=== PATIENT | male | born 1940 | race Caucasian/White ===

== ENCOUNTER → 2023-09-27 13:58 | Outpatient (REF) | payer MEDICARE, OTHER, SELFPAY ==
[2023-09-27 14:50] LABS: % Basophils 0.6 % (0-2); % Immature Granulocytes 0.3 % (0-0.5); % Lymphocytes 26.4 % (20.5-51.1); % Monocytes 7.6 % (1.7-9.3); % Neutrophils 62.1 % (42.2-75.2); ALT (SGPT) 27 U/L (0-50); AST (SGOT) 29 U/L (17-59); Absolute Eosinophils 0.2 10^3/uL (0-0.7); Absolute Lymphocytes 1.8 10^3/uL (1.2-3.4); Absolute Monocytes 0.5 10^3/uL (0.1-0.6); Absolute Neutrophils 4.1 10^3/uL (1.4-6.5); Albumin 4.4 g/dl (3.5-5.0); Alkaline Phosphatase 63 U/L (38-126); Blood Urea Nitrogen 18 mg/dl (9-20); Calcium 9.1 mg/dl (8.4-10.2); Carbon Dioxide 24 mmol/L (22-30); Chloride 109 mmol/L (98-107); Direct Bilirubin 0.2 mg/dl (0.0-0.4); Glucose 91 mg/dl (70-99); HDL Cholesterol 44 mg/dl; Hematocrit 46.1 % (39.0-52.0); Hemoglobin 15.3 g/dL (13.0-18.0); LDL Cholesterol, Calculated 63 mg/dl; Mean Corp Hgb Conc. 33.2 g/dL (33.0-37.0); Mean Corpuscular Volume 87.3 fL (80.0-94.0); Mean Platelet Volume 10.1 fL (7.4-10.4); Nucleated Red Blood Cells % 0 % (-); Platelet Count 193 10^3/uL (130-400); Potassium 4.5 mmol/L (3.5-5.1); Red Blood Cell Count 5.28 10^6/uL (4.70-6.10); Red Cell Dist. Width 14.9 % (11.5-14.5); Sodium 140 mmol/L (135-145); Total Cholesterol 130 mg/dl (50-199); Total Protein 6.8 g/dl (6.3-8.2); Triglyceride 115 mg/dl (10-149); Very Low Density Lipoprotein 23 mg/dl (0-30); White Blood Cell Count 6.7 10^3/uL (4.8-10.8); eGFR > 60.00
[2023-09-27 15:05] LABS: Vitamin D, 25-OH*** 34.5 ng/mL (30-80)
[2023-09-27 15:06] LABS: Urine Albumin Negative (Neg - Trace); Urine Bilirubin Negative (Negative); Urine Character Clear (Clear); Urine Color Yellow; Urine Glucose Negative (Negative); Urine Ketone Negative (Negative); Urine Leukocyte Negative (Negative); Urine Nitrite Negative (Negative); Urine Occult Blood Negative (Negative); Urine Specific Gravity 1.015 (<1.030); Urine Urobilinogen Negative (Neg - 1+)
== END ==
LOC: OLABPV 13:58
PROVIDERS: ATTENDING PHYSICIAN Internal Medicine Cardiovascular Disease; FAMILY PHYSICIAN Internal Medicine Geriatric Medicine
DX: I48.0 Paroxysmal atrial fibrillation (principal); I25.10 Atherosclerotic heart disease of native coronary artery without angina pectoris; E78.2 Mixed hyperlipidemia; R00.1 Bradycardia, unspecified; I45.2 Bifascicular block; Z79.899 Other long term (current) drug therapy; R73.01 Impaired fasting glucose; I10 Essential (primary) hypertension; I77.9 Disorder of arteries and arterioles, unspecified; Z79.01 Long term (current) use of anticoagulants; Z87.898 Personal history of other specified conditions; I35.8 Other nonrheumatic aortic valve disorders
CPT/HCPCS: 36415; 80053; 80061; 81003; 82248; 82306; 85025

== ENCOUNTER → 2023-11-16 07:55 | Outpatient (REF) | payer MEDICARE, OTHER, SELFPAY | LOC: RCS 07:55 | PROVIDERS: ATTENDING PHYSICIAN Internal Medicine Cardiovascular Disease; FAMILY PHYSICIAN Internal Medicine Geriatric Medicine | DX: I48.0 Paroxysmal atrial fibrillation (principal); I25.10 Atherosclerotic heart disease of native coronary artery without angina pectoris; I34.0 Nonrheumatic mitral (valve) insufficiency | CPT/HCPCS: 93306 ==

== ENCOUNTER 2024-03-19 10:32 | Inpatient (IN) | payer MEDICARE, OTHER, SELFPAY ==
[2024-03-17] VITALS (14 sets, daily range): BP systolic 123–158; BP diastolic 76–110; BMI 30.7; BMI 30.4
--- NOTE | 2024-03-17 08:15 | ED.CVA ---
History of Present Illness
General
Chief Complaint: CVA/TIA Symptoms
Source: patient and ambulance crew
Time Seen by Provider: 03/17/24 08:14
Onset of Stroke Symptoms
Onset of symptoms known: No
Time pt last seen normal is known: Yes
Date last time pt seen normal: 03/17/24
Time last time pt seen normal: 02:00
History of Present Illness
History of Present Illness:
84-year-old male presents to the emergency room complaining of left-sided weakness. Patient awoke from sleep at 7 AM with left-sided weakness. He attempted to walk to the bathroom but fell. He feels like his speech is slurred. Patient went to
bed at 11 PM feeling fine. He then awoke at 2 AM to use the bathroom and felt fine. The next time he awoke was at 7 AM. Patient denies any history of strokes. He denies headache.
Past History
Past History
ED Past Medical History: Hypercholesterolemia
ED Past Surgical History: None
Social History
Tobacco: Non-smoker
Phy Exam
Physical Exam
Physical Exam:
General: Awake, Alert, Oriented X3. No acute distress.
Vitals: unremarkable
Head: Atraumatic
Eyes: Pupils equal, EOMI
Throat: Airway intact, no exudates
Neck: Trachea midline
Lungs: Clear and equal b/l
Heart: Regular rate, no murmurs
Abd: Soft, Nontender, No pulsatile mass
Neuro: Left facial droop, left upper extremity drift, left leg has no drift. Sensation is intact throughout. Patient does not appear to have any visual field deficits.
Skin: Warm, dry, no rash
Extremities: pulses equal b/l, no edema
Scores
NIH Stroke Score
Level of Consciousness: 0 - Alert
LOC Questions: 0-Answers both correctly
LOC Commands: 0-Performs both correctly
Best Horizontal Gaze: 0-Normal
Visual Mccallum: 0=Normal, no visual loss
Facial Palsy: 1=Minor paralysis
Motor - Right Arm: 0=No drift 10 seconds
Motor - Left Arm: 1=Drift < 10 seconds
Motor - Right Le-No drift 5 seconds
Motor - Left Le-No drift 5 seconds
Limb Ataxia: 0-Absent
Sensation: 0-Normal
Best Language: 0-No aphasia
Dysarthria: 1-Mild slurring
Extinction and Inattention: 0-No abnormality
Total Score:: 3
Course
Orders/Labs/Results
Orders:
Orders
03/17/24 08:14
Electrocardiogram (*1) Stat
Reason for Study: Other
Other Reason for Exam: neuro symptoms
CT Head W/o Cont STROKE ALERT Urgent
Comment:
Reason For Exam: left sided weakness
CT Head/Neck Ang STROKE ALERT Urgent
Comment:
Reason For Exam: left sided weakness
Cardiac Monitoring- Treatment ONCE
EKG- Treatment ONCE
03/17/24 09:03
Type+Screen Urgent
Basic Metabolic Panel Urgent
Complete Blood Count/With Diff Urgent
03/17/24 09:05
Aspirin Chewable [Low Strength Aspirin] 324 mg PO NOW STA
03/17/24 09:52
ABO2 Urgent
BBK Wristband Number:
Abnormal Lab Results
03/17/24 03/17/24
08:18 09:03
MCHC 32.7 L g/dL
(33.0-37.0)
Absolute Lymphs (auto) 1.1 L 10^3/uL
(1.2-3.4)
Lymphocytes % 17.6 L %
(20.5-51.1)
Glucose 105 H mg/dl
(70-99)
POC Glucose 112 H mg/dl
(70-99)
03/17/24 09:03
03/17/24 09:03
Vital Signs
Initial and Last Documented VS:
Initial Vital Signs
Temp Pulse Resp BP Pulse Ox
97.8 F 81 16 158/100 95
03/17/24 08:13 03/17/24 08:13 03/17/24 08:13 03/17/24 08:13 03/17/24 08:13
Last Documented Vital Signs
Temp Pulse Resp BP Pulse Ox
97.8 F 77 21 138/101 94
03/17/24 08:13 03/17/24 12:35 03/17/24 12:35 03/17/24 12:35 03/17/24 12:35
MDM/Problems Addressed
Differential Diagnosis Includes:
Ischemic stroke, hemorrhagic stroke, seizure, vertigo
MDM/Problems Addressed:
Patient presents as a prehospital stroke alert with left-sided weakness. Symptoms are evidently improving from when he first noticed them. CT head and CTA does not show any acute abnormalities. During his stay in the emergency room the patient's
symptoms almost completely resolved. Patient will require hospitalization for further workup. Patient is anticoagulated with Eliquis. We will give aspirin here. Neurology consultation requested.
Chronic conditions affecting care: HTN, Arrhythmia (Atrial fibrillation) and Other (High cholesterol)
*Pulse Oximetry
Patient hypoxic: no
*EKG
Interpreted by ED Provider?: Yes
Interpretation: abnormal
Heart Rate: 66
Rate: normal
Rhythm: a-fib
Brigantine: normal axis
Interval: normal interval
QRS Pattern: right bundle branch block
Ischemia: non-specific ST changes
*Marketing Programs Specialist Interpretation
Rate: normal
Interpretation: abnormal
Heart Rate: 66
Rhythm: a-fib
*Critical Care Note
Total Time (30-74mins, 75-104mins- exclusive of procedures): Not Applicable
ED Attending Note
-
Portions of this chart may have been created with voice recognition software.� Occasional wrong word or��sound alike� substitutions may have occurred due to the inherent limitations of voice recognition software.
Discharge Plan
Departure
Patient Disposition: Admit
Date of Disposition: 03/17/24
Time of Disposition: 09:16
Presentation/result/management discussed w/ accepting MD/DO: Hospitalist
Condition: Fair
Discharge Problem:
Acute CVA (cerebrovascular accident)
Prescriptions:
No Action
PreserVision AREDS 1 CAP capsule
1 cap PO BID
acetaminophen [Tylenol Extra Strength] 500 MG tablet
1,000 mg PO Q6HPRN PRN (Reason: mild pain/ fever)
atorvastatin 40 MG tablet
40 mg PO QPM Qty: 90 10RF
Patient Comments:
03/17/2024: [facility] filled Rosuvastation 20mg on 01/18/24, Pt and Spouse state pt is on Atorvastatin.
nitroglycerin 0.4 MG tablet, sublingual
0.4 mg sublingual [id number] PRN (Reason: chest pain) Qty: 25 10RF
Patient Comments:
has never taken it
metoprolol succinate 12.5 MG tablet extended release 24 hr
12.5 mg PO DAILY Qty: 90 10RF
Eliquis 5 MG tablet
5 mg PO BID
Systane Ultra (PF) 0.4-0.3 % Drops
1 drp BOTH EYES DAILY
Rx Instructions:
both eyes
Referrals:
Timothy Zavala MD [Family Provider] -
Interventions
Interventions:
*Risk Screen - Suicide Last Done: 03/17/24 08:13
*General Assessment Last Done: 03/17/24 08:40
*Neglect/Abuse Screening Last Done: 03/17/24 08:13
ED- Fall Risk Assessment Last Done: 03/17/24 08:15
*ED COVID-19 Vaccine History Last Done: 03/17/24 08:13
ED- Pulmonary Assessment Last Done: 03/17/24 08:54
ED- Neurological Assessment Last Done: 03/17/24 08:53
ED- Cardiac Assessment Last Done: 03/17/24 08:54
ED Swallowing Screen Last Done: 03/17/24 09:20
Discharge Date and Time
Print Language: AMERICAN
[2024-03-17 08:20] LABS: Glucose - Point of Care 112 mg/dl (70-99)
[2024-03-17 09:16] LABS: % Basophils 0.5 % (0-2); % Eosinophils 3.4 % (0-6); % Immature Granulocytes 0.5 % (0-0.5); % Lymphocytes 17.6 % (20.5-51.1); Absolute Eosinophils 0.2 10^3/uL (0-0.7); Absolute Lymphocytes 1.1 10^3/uL (1.2-3.4); Absolute Monocytes 0.4 10^3/uL (0.1-0.6); Absolute Neutrophils 4.2 10^3/uL (1.4-6.5); Hematocrit 49.5 % (39.0-52.0); Hemoglobin 16.2 g/dL (13.0-18.0); Mean Corp Hgb Conc. 32.7 g/dL (33.0-37.0); Mean Corpuscular Hgb 28.9 pg (27.0-31.0); Mean Corpuscular Volume 88.2 fL (80.0-94.0); Mean Platelet Volume 9.9 fL (7.4-10.4); Nucleated Red Blood Cells % 0 % (-); Platelet Count 182 10^3/uL (130-400); Red Blood Cell Count 5.61 10^6/uL (4.70-6.10); Red Cell Dist. Width 14.4 % (11.5-14.5)
--- NOTE | 2024-03-17 09:29 | HPS.HSE ---
Family Physician
-
Family Physician: Timothy Zavala
Chief Complaint
-
Left Sided weakness
History of Present Illness
84 male hypertension hyperlipidemia A-fib on Eliquis presents with left-sided weakness on waking morning 7 AM proximally. Last known normal at 2 AM when patient got up from bed to go to the bathroom. Daughter over phone also noted slurred speech.
Overall symptoms improved/resolved in transit with EMS services. Denies fevers chills nausea vomiting diarrhea headache coughing sneezing shortness of breath. Hypertensive but otherwise vital signs stable on room air. Labs unremarkable. CT and
CTA head and neck negative for acute abnormalities. Received aspirin loading dose in ED.
Medical History
Past Medical History
Past Medical History: Reports Other (As above)
Past Surgical History: Reports Other (As above)
Social History
Tobacco: Former Smoker
Drug: None
Personal:
Living: With Family
Employment: Retired
Family History
Family History: Other (Patient's mother reportedly had stroke at 87)
Allergies / Home Medications
Allergies reflects when Allergies were last updated in YouTube.
Home Medications with original date entered in YouTube
Allergy/Medication List:
Allergies
Allergy/AdvReac Type Severity Reaction Status Date / Time
No Known Allergies Allergy Verified 03/17/24 08:50
Home Medications
acetaminophen 500 mg tablet (Tylenol Extra Strength) 1,000 mg PO Q6HPRN PRN mild pain/ fever 04/24/19
vitamins A,C,J-vbou-ufouve 4,296 mcg-226 mg-90 mg capsule (PreserVision AREDS) 1 cap PO BID 04/24/19
atorvastatin 40 mg tablet 40 mg PO QPM #90 tabs 04/27/19
metoprolol succinate 25 mg tablet,extended release 24 hr 12.5 mg (1/2 x 25 mg) PO DAILY ##90 04/27/19
nitroglycerin 0.4 mg sublingual tablet 0.4 mg sublingual [id number] PRN chest pain #25 tabs 04/27/19
apixaban 5 mg tablet (Eliquis) 5 mg PO BID 08/03/21
peg 400 0.4 %-propylene glycol (PF) 0.3 % eye drops (Systane Ultra (PF)) 1 drp BOTH EYES DAILY 03/17/24
Review of Systems
-
A 12 point ROS was completed and negative except as noted: Yes
Constitutional: Reports Other (As below)
Physical Exam
Vital Signs
Vital Signs
Temp Pulse Resp BP Pulse Ox
97.8 F 78 21 152/97 94
03/17/24 08:13 03/17/24 08:57 03/17/24 08:57 03/17/24 08:45 03/17/24 08:54
Physical Exam
General: Other (As below)
Laboratory Results
-
03/17/24 09:03
Impression/Plan
-
ROS
General: Denies fever chills night sweats unexpected weight loss
Neuro: Reports transient slurred speech left sided weakness resolved at this time Denies seizure shaking loss of consciousness dizziness vertigo
Psych: denies depression hallucinations confusion manic episodes
Endocrine: Denies polyuria polydipsia polyphagia heat/cold intolerance
HEENT: Denies new blindness visual disturbances epistaxis reports baseline blurry vision d/t macular degeneration
Pulmonary: denies coughing hemoptysis sneezing sob dyspnea on exertion
Cardiovascular: denies chest pain palpitations leg swelling
Hematology: denies signs symptoms of anemia easy bruising/bleeding
Gastrointestinal: denies nausea vomiting diarrhea constipation hematemesis hematochezia melena
Genito-Urinary: denies retention incontinence dysuria
Musculoskeletal: denies joint pain weakness
Dermatology: denies rash laceration bruising
Physical Exam
General: No pallor, cyanosis, or jaundice. Obese
HEENT: Throat clear. PERRLA Normocephalic atraumatic
NECK: Supple. No JVD Carotid Bruits
RESPIRATORY: Lungs clear to auscultation. No crackles wheezes stridor
CVS: S1, S2 normal. RRR. No murmur, rub or gallop.
ABDOMEN: Soft, non-tender. No distension. BS+/normal.
EXTREMITIES: No peripheral cyanosis or edema.
EXECUTIVE ASSISTANT TO GENERAL COUNSEL: AOx3. No focal deficits.
IMPRESSION:
84 male obese hypertension hyperlipidemia A-fib on Eliquis hx CAD/[place] presents with left-sided weakness on waking morning 7 AM proximally. Last known normal at 2 AM when patient got up from bed to go to the bathroom. Daughter over phone also noted
slurred speech. Overall symptoms improved/resolved in transit with EMS services. Denies fevers chills nausea vomiting diarrhea headache coughing sneezing shortness of breath. Hypertensive but otherwise vital signs stable on room air. Labs
unremarkable. CT and CTA head and neck negative for acute abnormalities. Received aspirin loading dose in ED.
PLAN:
#Likely TIA vs CVA
Tele obs
CT/CTA Head/Neck appreciated no acute abn's
MRI Brain pending
ST/PT/OT eval
Neuro Consult
Permissive HTN <220/120 (labetalol prn if bp is greater)
NIH neurochecks
fall precautions
received loading dose ASA, cont ASA 81 mg daily
#HTN
#HLD
#Afib
#Hx CAD/[place]
permissive HTN as above
cont home metoprolol with holding parameters
cont statin Eliquis
#Obesity
dvt ppx Eliquis
DNR as per patient
I spent a total of 75 minutes with the patient or on the floor. More than 50% of this time involved counseling and coordination of care.
[2024-03-17 09:33] LABS: Blood Urea Nitrogen 18 mg/dl (9-20); Calcium 9.8 mg/dl (8.4-10.2); Carbon Dioxide 26 mmol/L (22-30); Chloride 104 mmol/L (98-107); Estimated Creatinine Clearance 72 ml/min; Glucose 105 mg/dl (70-99); Potassium 4.5 mmol/L (3.5-5.1); Sodium 142 mmol/L (135-145); eGFR > 60.00
[2024-03-17] MEDS: LOW STRENGTH ASPIRIN 324 MG PO (09:49)
--- NOTE | 2024-03-17 12:40 | CON.NEURO4 ---
Consultation - Neurology 4
-
CONSULTING PHYSICIAN: Luis Miguel Baron MD
REFERRING PHYSICIAN:
DICTATED BY: Luis Miguel baron MD
DATE/TIME OF REQUEST: 03/17/2024
DATE/TIME OF CONSULTATION: 03/17/2024
Reason for Consultation: Left sided weakness
History of Present Illness:
This is a 84 year old right) handed (male/female) who has presented to the hospital with (chief complaint) of left sided weakness. 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
left-sided weakness on waking morning 7 AM proximally. Last known normal at 2 AM when patient got up from bed to go to the bathroom. Daughter over phone also noted slurred speech. Overall symptoms improved/resolved in transit with EMS services.
Denies fevers chills nausea vomiting diarrhea headache coughing sneezing shortness of breath. Hypertensive but otherwise vital signs stable on room air. Labs unremarkable. CT and CTA head and neck negative for acute abnormalities. Received
aspirin loading dose in E
Past medical history: As above
Surgical History: Hernia
Family History: Father colon and prostate. cancer Mother HTN CVA
Social History: lives at home with his
Allergies: NKA
Home Medications: Addendum
Review of Symptoms:
Patient denies any fever, headache, chest pain, shortness of breath, GI or symptoms.
�Per the HPI.�All systems are reviewed negative except above.
�- Remove any of these problems that patient may have complained about in the HPI.
�- If patient is unresponsive, intubated or demented, say 'Per the HPI. I am unable to obtain a complete review of systems�because of patient's inability to provide history.'
Vital Signs:
The patient has Temp36.6 C Pulse 77 Resp 21 BP 138/101 Pulse Ox 94
Physical Exam:
The patient is afebrile, heart sounds S1 and S2 are (regular / irregular), and chest is clear to auscultation bilaterally.
NIH Stroke Scale (if applicable):0
Neurologic Examination:
The patient is awake, alert and oriented x 3. (He/She) is able to follow commands and answer questions appropriately. There is no aphasia or dysarthria. On cranial nerve assessment, pupils are 3 mm bilateral, round and reactive to light and
accommodation. Visual cole are full. Extraocular movements are intact. Facial sensations are intact and bilaterally symmetrical, there is no facial asymmetry. Hearing is intact bilaterally to normal conversation volume. Tongue palate and uvula
are midline. Sternocleidomastoid strengths are full bilaterally. Motor strengths are 5/5 bilateral upper and lower extremities on medical research Bolton scale. There is no drift or involuntary movement noted. Deep tendon reflexes are 2+ bilateral
upper and lower extremities and Babinski is absent bilaterally. Sensations of pain, touch, temperature and vibration are intact and bilaterally symmetrical. There was no extinction noted on double simultaneous stimulation. Coordination is intact by
finger to nose bilaterally.
Lab Results: Addendum
Neuro Imaging: CT head Atrophy. Small vessel disease. Mild ventriculomegaly
Impression:
(Mr. / Ms.) NOAM MATHIS is a 84 year old M who has presented to the hospital with (symptoms/chief complaint). of left sided weakness that has resolved
Patient has the following risk factors for their symptoms: Atrial fibrillation
Recommendations:
1. Eliquis
2. Aspirin
3. BP control
4. Statin
5. MRI brain
Discussed patient care with: Hospitalist
Allergies
-
Allergies
Allergy/AdvReac Type Severity Reaction Status Date / Time
No Known Allergies Allergy Verified 03/17/24 08:50
Vital Signs and Labs
-
Vital Signs and Labs:
Vital Signs
Temp Pulse Resp BP Pulse Ox
36.6 C 77 21 138/101 94
03/17/24 08:13 03/17/24 12:35 03/17/24 12:35 03/17/24 12:35 03/17/24 12:35
Lab Results
03/17/24 09:03
03/17/24 09:03
Sodium 142 mmol/L (135-145) 03/17/24 09:03
Potassium 4.5 mmol/L (3.5-5.1) 03/17/24 09:03
BUN 18 mg/dl (9-20) 03/17/24 09:03
Glucose 105 mg/dl (70-99) H 03/17/24 09:03
Calcium 9.8 mg/dl (8.4-10.2) 03/17/24 09:03
Medications
-
Home Medications
�Medication �Instructions �Recorded
acetaminophen 500 mg tablet 1,000 mg PO Q6HPRN PRN mild pain/ 04/24/19
(Tylenol Extra Strength) fever
vitamins A,C,N-ehxp-vrkfkh 4,296 1 cap PO BID 04/24/19
mcg-226 mg-90 mg capsule
(PreserVision AREDS)
atorvastatin 40 mg tablet 40 mg PO QPM #90 tabs 04/27/19
metoprolol succinate 25 mg 12.5 mg (1/2 x 25 mg) PO DAILY ##90 04/27/19
tablet,extended release 24 hr
nitroglycerin 0.4 mg sublingual 0.4 mg sublingual [id number] PRN 04/27/19
tablet chest pain #25 tabs
apixaban 5 mg tablet (Eliquis) 5 mg PO BID 08/03/21
peg 400 0.4 %-propylene glycol 1 drp BOTH EYES DAILY 03/17/24
(PF) 0.3 % eye drops (Systane
Ultra (PF))
--- NOTE | 2024-03-17 16:43 | EDRN ---
NIHSS assessment reviewed with DEXTER Johnson on via phone. Patient taken to room 2124 on stretcher by instrumentation engineering technician.
[2024-03-17] MEDS: LIPITOR 40 MG PO (18:25)
[2024-03-17] MEDS: ELIQUIS 5 MG PO (20:03)
[2024-03-18] VITALS (8 sets, daily range): BP systolic 126–154; BP diastolic 75–90; PULSE 68; O2SAT 96
--- NOTE | 2024-03-18 04:15 | PTCARENOTE ---
Gildardo texted house provider that pt's HR dipping to as low as 37. VSS. Pt resting comfortably in bed. No new orders at this time, will continue to monitor.
[2024-03-18 07:13] LABS: Hematocrit 44.5 % (39.0-52.0); Hemoglobin 14.9 g/dL (13.0-18.0); Mean Corp Hgb Conc. 33.5 g/dL (33.0-37.0); Mean Corpuscular Hgb 29.4 pg (27.0-31.0); Mean Corpuscular Volume 87.8 fL (80.0-94.0); Mean Platelet Volume 9.4 fL (7.4-10.4); Platelet Count 166 10^3/uL (130-400); Red Blood Cell Count 5.07 10^6/uL (4.70-6.10); Red Cell Dist. Width 14.3 % (11.5-14.5); White Blood Cell Count 7.5 10^3/uL (4.8-10.8)
[2024-03-18 07:33] LABS: Blood Urea Nitrogen 15 mg/dl (9-20); Calcium 9.3 mg/dl (8.4-10.2); Carbon Dioxide 26 mmol/L (22-30); Chloride 105 mmol/L (98-107); Estimated Creatinine Clearance 80 ml/min; Glucose 89 mg/dl (70-99); HDL Cholesterol 34 mg/dl; LDL Cholesterol, Calculated 57 mg/dl; Magnesium 2.1 mg/dl (1.6-2.3); Phosphorus 3.6 mg/dl (2.5-4.5); Potassium 4.5 mmol/L (3.5-5.1); Sodium 144 mmol/L (135-145); Total Cholesterol 127 mg/dl (50-199); Triglyceride 182 mg/dl (10-149); Very Low Density Lipoprotein 36 mg/dl (0-30); eGFR > 60.00
--- NOTE | 2024-03-18 07:33 | W.PN.HOSP.TC ---
Today's Communication/Plan
-
ECHO Carotid US pending
start amlodipine
Assessment / Plan
Assessment / Plan
Physical Exam
General: No pallor, cyanosis, or jaundice. Obese
HEENT: Throat clear. PERRLA Normocephalic atraumatic
NECK: Supple. No JVD Carotid Bruits
RESPIRATORY: Lungs clear to auscultation. No crackles wheezes stridor
CVS: S1, S2 normal. RRR. No murmur, rub or gallop.
ABDOMEN: Soft, non-tender. No distension. BS+/normal.
EXTREMITIES: No peripheral cyanosis or edema.
CORE PILER: AOx3. No focal deficits.
IMPRESSION:
84 male obese hypertension hyperlipidemia A-fib on Eliquis hx CAD/[place] presents with left-sided weakness on waking morning 7 AM proximally. Last known normal at 2 AM when patient got up from bed to go to the bathroom. Daughter over phone also noted
slurred speech. Overall symptoms improved/resolved in transit with EMS services. Denies fevers chills nausea vomiting diarrhea headache coughing sneezing shortness of breath. Hypertensive but otherwise vital signs stable on room air. Labs
unremarkable. CT and CTA head and neck negative for acute abnormalities. Received aspirin loading dose in ED.
PLAN:
#Likely TIA vs CVA
Tele obs
CT/CTA Head/Neck appreciated no acute abn's
MRI Brain appreciated right thalamus acute to subacute infarction
ST/PT/OT eval appreciated
Neuro Consult appreciated
Permissive HTN completed
NIH neurochecks
fall precautions
received loading dose ASA, cont ASA 81 mg daily with home Eliquis
Check ECHO carotid US
#HTN
#HLD
#Afib
#Hx CAD/[place]
cont home metoprolol with holding parameters, low dose amlodipine started
cont statin Eliquis
#Obesity
dvt ppx Eliquis
DNR as per patient
I spent a total of 55 minutes with the patient or on the floor. More than 50% of this time involved counseling and coordination of care.
Anticipated Discharge: 24 - 48 hours
Subjective/Interval History
-
Date of Service: March 18, 2024
No acute distress. Reports left sided weakness resolved. Denies new acute issues at this time.
Objective Data
-
Labs:
Laboratory Results
03/18/24
05:58
WBC 7.5
Hgb 14.9
Hct 44.5
Plt Count 166
Sodium Pending
Potassium Pending
Chloride Pending
Carbon Dioxide Pending
BUN Pending
Creatinine Pending
Glucose Pending
Calcium Pending
Vital Signs:
Vital Signs
Temp Pulse Resp BP Pulse Ox
98.1 F 66 18 154/88 98
03/18/24 07:06 03/18/24 07:06 03/18/24 07:06 03/18/24 07:06 03/18/24 07:06
I&O
03/17/24 03/18/24 03/19/24
06:59 06:59 06:59
Intake Total 830 / 830
Balance 830 / 830
[2024-03-18] MEDS: REFRESH EYE DROPS (PF) 1 DROPS BOTH EYES (08:14)
[2024-03-18] MEDS: TOPROL XL 12.5 MG PO (08:14)
[2024-03-18] MEDS: LOW STRENGTH ASPIRIN 81 MG PO (08:15)
[2024-03-18] MEDS: ELIQUIS 5 MG PO ×2 (08:15→20:36)
--- NOTE | 2024-03-18 11:09 | PTOTSP ---
ST Acute Care Evaluation
Pt currently presents with slight change in speech (perceived by pt only) and reduced lingual coordination that does not noticeably effect his speech production. Pt exhibits intact alertness, orientation, receptive language, expressive language,
reading, repetition, and cognitive linguistic skills.
No skilled dysphagia, speech, language, or cognitive linguistic tx deemed necessary at this time.
Recommendations:
- Continue with regular solids, thin liquids, meds as tolerated.
- General aspiration precautions.
- CARDIAC CATH RN to sign off. Please reconsult if anything changes. Thank you.
--- NOTE | 2024-03-18 11:35 | CM ---
Patient seen at bedside. CM reviewed OBS/JAMESON status and signed copy placed on chart. Patient states that he lives with at [facility] in independent apartment. Patient states that he is friends with 'Anna' at [place]. Patient stated he is independent
of ADL's and IADL's prior to admission and has no DME at home. Patient PCP is Dr. Zavala and he uses the [facility] in [facility]. Patient plan is to return to apartment when medically appropriate and does not anticipate need for VN. CM will continue
to follow for discharge planning needs.
Plan; home with VN vs home with no needs.
[2024-03-18] MEDS: LIPITOR 40 MG PO (17:00)
[2024-03-18] MEDS: NORVASC 2.5 MG PO (21:44)
[2024-03-19 03:19] VITALS: BP 160/111
--- NOTE | 2024-03-19 07:35 | W.PN.HOSP.TC ---
Today's Communication/Plan
-
Likely discharge today pending Follow up ECHO results
Assessment / Plan
Assessment / Plan
Physical Exam
General: No pallor, cyanosis, or jaundice. Obese
HEENT: Throat clear. PERRLA Normocephalic atraumatic
NECK: Supple. No JVD Carotid Bruits
RESPIRATORY: Lungs clear to auscultation. No crackles wheezes stridor
CVS: S1, S2 normal. RRR. No murmur, rub or gallop.
ABDOMEN: Soft, non-tender. No distension. BS+/normal.
EXTREMITIES: No peripheral cyanosis or edema.
CONTACT LENS MANUFACTURER: AOx3. No focal deficits.
IMPRESSION:
84 male obese hypertension hyperlipidemia A-fib on Eliquis hx CAD/[place] presents with left-sided weakness on waking morning 7 AM proximally. Last known normal at 2 AM when patient got up from bed to go to the bathroom. Daughter over phone also noted
slurred speech. Overall symptoms improved/resolved in transit with EMS services. Denies fevers chills nausea vomiting diarrhea headache coughing sneezing shortness of breath. Hypertensive but otherwise vital signs stable on room air. Labs
unremarkable. CT and CTA head and neck negative for acute abnormalities. Received aspirin loading dose in ED.
PLAN:
#Likely TIA vs CVA
Tele obs
CT/CTA Head/Neck appreciated no acute abn's
MRI Brain appreciated right thalamus acute to subacute infarction
ST/PT/OT eval appreciated
Neuro Consult appreciated
Permissive HTN completed
NIH neurochecks
fall precautions
received loading dose ASA, cont ASA 81 mg daily with home Eliquis
Carotid US appreciated no acute abn's
follow up ECHO results pending
#HTN
#HLD
#Afib
#Hx CAD/[place]
cont home metoprolol with holding parameters, low dose amlodipine started titrated up to 5 mg daily
cont statin Eliquis
#Obesity
weight loss advised/counseled
PT/OT appreciated no needs anticipated
dvt ppx Eliquis
DNR as per patient
I spent a total of 45 minutes with the patient or on the floor. More than 50% of this time involved counseling and coordination of care.
Anticipated Discharge: Today
Subjective/Interval History
-
Date of Service: March 19, 2024
Seen and examined at bedside in no acute distress sitting up comfortably in chair. Overall reports feeling well, resolution of left sided weakness. Denies new acute issues. Eager to go home.
Objective Data
-
Labs:
Laboratory Results
03/19/24
07:31
WBC Pending
Hgb Pending
Hct Pending
Plt Count Pending
Sodium Pending
Potassium Pending
Chloride Pending
Carbon Dioxide Pending
BUN Pending
Creatinine Pending
Glucose Pending
Calcium Pending
Vital Signs:
Vital Signs
Temp Pulse Resp BP Pulse Ox
97.4 F 77 17 160/111 97
03/19/24 03:19 03/19/24 03:19 03/19/24 03:19 03/19/24 03:19 03/19/24 03:19
I&O
03/18/24 03/19/24 03/20/24
06:59 06:59 06:59
Intake Total 830 / 830 1560 / 1560
Balance 830 / 830 1560 / 1560
[2024-03-19 07:49] VITALS: BP 127/78
[2024-03-19 08:08] LABS: Hematocrit 49.6 % (39.0-52.0); Hemoglobin 16.4 g/dL (13.0-18.0); Mean Corp Hgb Conc. 33.1 g/dL (33.0-37.0); Mean Corpuscular Volume 87.8 fL (80.0-94.0); Mean Platelet Volume 9.7 fL (7.4-10.4); Platelet Count 187 10^3/uL (130-400); Red Blood Cell Count 5.65 10^6/uL (4.70-6.10); Red Cell Dist. Width 14.3 % (11.5-14.5); White Blood Cell Count 7.6 10^3/uL (4.8-10.8)
[2024-03-19 08:09] VITALS: BMI 30.4
[2024-03-19 08:38] LABS: Blood Urea Nitrogen 17 mg/dl (9-20); Calcium 9.9 mg/dl (8.4-10.2); Carbon Dioxide 28 mmol/L (22-30); Chloride 103 mmol/L (98-107); Estimated Creatinine Clearance 80 ml/min; Glucose 105 mg/dl (70-99); Magnesium 2.1 mg/dl (1.6-2.3); Phosphorus 3.6 mg/dl (2.5-4.5); Potassium 4.5 mmol/L (3.5-5.1); Sodium 144 mmol/L (135-145); eGFR > 60.00
[2024-03-19] MEDS: REFRESH EYE DROPS (PF) 1 DROPS BOTH EYES (08:38)
[2024-03-19] MEDS: TOPROL XL 12.5 MG PO (08:38)
[2024-03-19] MEDS: ELIQUIS 5 MG PO (08:38)
[2024-03-19] MEDS: LOW STRENGTH ASPIRIN 81 MG PO (08:38)
[2024-03-19] MEDS: NORVASC 5 MG PO (08:39)
--- NOTE | 2024-03-19 10:07 | W.PN.NEURO.1 ---
Today's Communication / Plan
-
Although there was an increased risk of hemorrhagic conversion with the use of aspirin with apixaban after acute ischemic stroke, the patient has in the past utilized both therapies successfully and without side effect. Therefore, continue both at
this time especially as there are no scientific data to support replacing apixaban with an alternative.
Exchange recently initiated statin with the patient's usual rosuvastatin as lipid profile is favorable
Neuro Assessment/Plan
Assessment
IMPRESSIONS
Abrupt change in left-sided strength
Due to right thalamic acute ischemic stroke; patient was not a candidate for either tenecteplase or intra-arterial thrombectomy due to NIH stroke scale less than 6
Plan
Although there was an increased risk of hemorrhagic conversion with the use of aspirin with apixaban after acute ischemic stroke, the patient has in the past utilized both therapies successfully and without side effect. Therefore, continue both at
this time especially as there are no scientific data to support replacing apixaban with an alternative.
Exchange recently initiated statin with the patient's usual rosuvastatin as lipid profile is favorable
Patient may have experienced stroke due to elevated blood pressure and this should be followed as an outpatient meticulously.
Rehabilitation evaluations
Medical educational materials provided
Will follow as needed.
Subjective/Objective
Subjective Data
Date of Service: March 19, 2024
9.5 out of 10 improved
Objective Data
Vital Signs
Temp Pulse Resp BP Pulse Ox
36.6 C 66 16 127/78 94
03/19/24 07:49 03/19/24 08:39 03/19/24 07:49 03/19/24 08:39 03/19/24 07:49
Lab Results
03/19/24 07:31
03/19/24 07:31
Sodium 144 mmol/L (135-145) 03/19/24 07:31
Potassium 4.5 mmol/L (3.5-5.1) 03/19/24 07:31
BUN 17 mg/dl (9-20) 03/19/24 07:31
Glucose 105 mg/dl (70-99) H 03/19/24 07:31
Calcium 9.9 mg/dl (8.4-10.2) 03/19/24 07:31
Phosphorus 3.6 mg/dl (2.5-4.5) 03/19/24 07:31
LDL Cholesterol, Calc 57 mg/dl 03/18/24 05:58
Patient Allergies
No Known Allergies Allergy (Verified 03/17/24 08:50)
Review of Systems
-
History Source: Patient
All other systems: Reviewed and negative
Respiratory: Negative Trouble Breathing
Cardiac: Negative Chest Pain
Neuro: Negative Headache
Physical Exam
-
General: No Apparent Distress and Appears Stated Age
Eyes: Round OU, [place] Conjunctivae and No Ptosis
HEENT: Anicteric and Moist Mucous Membranes
Neck: Full Range of Motion
Respiratory: No Dyspnea
Cardiac: No JVD
GI: Non-distended
Skin: Unremarkable
Extremities: No Clubbing, No Cyanosis and No Edema
Psych: Intact Judgement/Insight
Extended Neurological Exam
Mood & Affect: Mood Unremarkable and Affect Unremarkable
Attention Span & Concentration: Awake, Alert, Interactive and No Difficulty with 2 Step Request
Memory: Unremarkable
Tremor: Hand Tremor Absent and Head Tremor Absent
Speech: Quality Unremarkable and Quantity Unremarkable
Cranial Nerve II: Left Eye: Pupillary Size Unremarkable and Visual [place] Grossly Intact
Cranial Nerve II: Right Eye: Pupillary Size Unremarkable and Visual [place] Grossly Intact
Cranial Nerves III, IV, : Extraocular Movement: Extraocular Movement Full in all Directions
Cranial Nerve VII: Facial Symmetry: Reduced (Minimally on the left)
Cranial Nerve VIII: Hearing: Unremarkable Hearing to Normal Conversational Volume
Cranial Nerve XI: Shoulder Shrug: Unremarkable
Muscle Strength, Overall: Spontaneously Moves (All extremities)
Muscle Bulk & Tone: Bulk Unremarkable and Tone Unremarkable
Pronator Drift: No Drift in Upper Extremities and No Drift in Lower Extremities
Coordination: Cxpocn-[id number]-[id number] Testing Unremarkable
Babinski Sign: Absent Bilaterally
Data Reviewed
-
CT-A: Report Reviewed
MRI Head: Report Reviewed (right lateral thalamus acute ischemic stroke)
Labs: Report Reviewed
Reviewed with: Physician and Patient
Old Records: Summarized
Past History
Past History
ED Past Medical History: CAD, HTN, Hypercholesterolemia and NM
ED Past Surgical History: Other (herniorrhaphy, MOHS surgery, tooth extraction)
Social History
Tobacco: Non-smoker
Alcohol: Occasional
Drug: None
Personal:
Living: with family
Employment: Retired
Family History
Family History: Other (reviewed and non-contributory)
Medications
-
Medications:
Generic Name Dose Route Start Last Admin
Trade Name Freq PRN Reason Stop Dose Admin
Acetaminophen 1,000 mg 03/17/24 16:42
Acetaminophen 500 Mg Tablet PO 04/14/24 16:41
Q6HPRN PRN
mild pain/ fever
Amlodipine Besylate 5 mg 03/19/24 08:00 03/19/24 08:39
Amlodipine 5 Mg Tablet PO 04/16/24 07:59 5 mg
DAILY GARTH Administration
Apixaban 5 mg 03/17/24 20:00 03/19/24 08:38
Apixaban (Eliquis) 5 Mg Tablet PO 04/14/24 19:59 5 mg
BID GARTH Administration
Artificial Tears 1 drops 03/18/24 08:00 03/19/24 08:38
Artificial Tears Pf (Refresh) 10 Drop Droperette BOTH EYES 04/15/24 07:59 1 drops
DAILY GARTH Administration
Aspirin 81 mg 03/18/24 08:00 03/19/24 08:38
Aspirin 81 Mg Chewable Tablet PO 04/15/24 07:59 81 mg
DAILY GARTH Administration
Atorvastatin Calcium 40 mg 03/17/24 18:00 03/18/24 17:00
Atorvastatin (Lipitor) 40 Mg Tablet PO 04/14/24 17:59 40 mg
QPM GARTH Administration
Labetalol HCl 10 mg 03/19/24 07:33
Labetalol Hcl 5 Mg/1 Ml (20 Mg/4 Ml) Injection IV 04/14/24 16:41
Q6HPRN PRN
SBP>140 or DBP>100
Metoprolol Succinate 12.5 mg 03/18/24 08:00 03/19/24 08:38
Metoprolol 25 Mg Extended Release Tablet PO 04/15/24 07:59 12.5 mg
DAILY GARTH Administration
[2024-03-19 11:41] VITALS: BP 111/73
--- NOTE | 2024-03-19 11:48 | PTCARENOTE ---
pt aaox3. states no pain or sob. nihss done with night time babysitter rn zero. pt ambulating in room.
[2024-03-19 12:04] VITALS: BP 118/73; PULSE 63; O2SAT 94
--- NOTE | 2024-03-19 14:44 | CM ---
CM folioing re: discharge planning.
Reviewed pt's chart, met with pt and pt's spouse at bedside.
Per UR team, pt's admission has been upgraded to inpatient. Both pt and his spouse are aware, IMM reviewed, placed on chart, pt has a copy.
PT and OT evaluations noted - pt has no skilled PT/OT needs.
Pt reports he lives with spouse at [facility] and is independent in all areas [employer].
D/C plan: home with no needs. Spouse to transport
[2024-03-19 16:08] VITALS: BP 131/82
--- NOTE | 2024-03-19 16:58 | W.DCSUMMARY ---
Discharge Summary
Discharge Data
Date of Admission: 03/19/24
Date of Discharge: 03/19/24
-
Pending Results: No
Discharge Plan
-
Patient Disposition: Home (Routine Discharge)
Discharge Diagnosis/Procedures: Stroke
Hypertension
Hyperlipidemia
Prediabetes
atrial fibrillation
Condition: Fair
Diet: Low Cholesterol and 2 Gram Sodium
Activity: As tolerated
Driving Restrictions: As prior to admission
Bathing Restrictions: None
Blood Work: Please repeat Lipid panel with primary care provider in 1 month of discharge.
Activity Restrictions/Additional Instructions:
Please follow up with primary care provider in 1 week of discharge and Police Radio Dispatcher in 2 weeks of discharge.
Amlodipine has been started for better blood pressure control. Please keep a daily log of your pressures at home and follow up with primary care provider and guide travel with the values for further evaluation/treatment hypertension as necessary.
For stroke, Aspirin has been started to continue with your home Eliquis for 21 days (03/17/24-04/06/24). After 04/06, discontinue Aspirin and continue with Eliquis alone.
Please take medications as prescribed/recommended and follow up with primary care provider and/or other healthcare provider involved in your care for refills and/or further adjustment to your medication regimen as necessary.
Referrals:
Timothy Zavala MD [Family Provider] - in one week
Kosta Fischer MD [Active] - in two weeks
Prescriptions:
New
aspirin 81 mg Tablet,Chewable
81 mg PO DAILY 18 Days Qty: 18 0RF
Rx Instructions:
Last day 04/06/24 then stop
amlodipine 5 mg Tablet
5 mg PO DAILY 30 Days Qty: 30 0RF
Continued
PreserVision AREDS 1 CAP capsule
1 cap PO BID
acetaminophen [Tylenol Extra Strength] 500 MG tablet
1,000 mg PO Q6HPRN PRN (Reason: mild pain/ fever)
nitroglycerin 0.4 MG tablet, sublingual
0.4 mg sublingual [id number] PRN (Reason: chest pain) Qty: 25 10RF
Patient Comments:
has never taken it
metoprolol succinate 12.5 MG tablet extended release 24 hr
12.5 mg PO DAILY Qty: 90 10RF
Eliquis 5 MG tablet
5 mg PO BID
Systane Ultra (PF) 0.4-0.3 % Drops
1 drp BOTH EYES DAILY
Rx Instructions:
both eyes
rosuvastatin 20 mg Tablet
20 mg PO DAILY
Discharge Orders:
Discharge Patient (As Directed); Ordered 03/19/24
Ordered By: Gonzales Benson
Discharge Date and Time
Print Language: MEXICAN
== END 2024-03-19 17:28 | disposition home or self-care (01) | DRG 65 ==
LOC: 2 NORTH 10:32
PROVIDERS: ADMITTING PHYSICIAN Internal Medicine; CONSULT PHYSICIAN Psychiatry & Neurology Neurology; EMERGENCY PHYSICIAN Emergency Medicine; FAMILY PHYSICIAN Internal Medicine Geriatric Medicine
DX: I63.89 Other cerebral infarction (principal); G81.94 Hemiplegia, unspecified affecting left nondominant side; R47.1 Dysarthria and anarthria; E78.00 Pure hypercholesterolemia, unspecified; Z66 Do not resuscitate; I48.91 Unspecified atrial fibrillation; I10 Essential (primary) hypertension; I25.10 Atherosclerotic heart disease of native coronary artery without angina pectoris; I25.2 Old myocardial infarction; I07.1 Rheumatic tricuspid insufficiency; R73.03 Prediabetes; R29.703 NIHSS score 3; E66.9 Obesity, unspecified; Z68.30 Body mass index [BMI] 30.0-30.9, adult; Z82.3 Family history of stroke; Z82.49 Family history of ischemic heart disease and other diseases of the circulatory system; Z79.01 Long term (current) use of anticoagulants; Z87.891 Personal history of nicotine dependence; Z79.899 Other long term (current) drug therapy
CPT/HCPCS: 93308; 70450; 70496; 70498; 70551; 80048; 80061; 82962; 83735; 84100; 85025; 85027; 86850; 86900; 86901; 87070; 92523; 92610; 93005; 93321; 93325; 93880; 97116; 97162; 97166; 99285; Q9967

== ENCOUNTER → 2024-10-16 10:42 | Outpatient (REF) | payer MEDICARE, OTHER, SELFPAY ==
[2024-10-16 11:20] LABS: % Basophils 0.6 % (0-2); % Eosinophils 3.4 % (0-6); % Immature Granulocytes 0.3 % (0-0.5); % Lymphocytes 22.4 % (20.5-51.1); % Monocytes 8.5 % (1.7-9.3); % Neutrophils 64.8 % (42.2-75.2); Absolute Eosinophils 0.2 10^3/uL (0-0.7); Absolute Lymphocytes 1.4 10^3/uL (1.2-3.4); Absolute Monocytes 0.6 10^3/uL (0.1-0.6); Absolute Neutrophils 4.2 10^3/uL (1.4-6.5); Hematocrit 48.1 % (39.0-52.0); Hemoglobin 15.2 g/dL (13.0-18.0); Mean Corp Hgb Conc. 31.6 g/dL (33.0-37.0); Mean Corpuscular Hgb 28.4 pg (27.0-31.0); Mean Corpuscular Volume 89.7 fL (80.0-94.0); Mean Platelet Volume 10.3 fL (7.4-10.4); Nucleated Red Blood Cells % 0 % (-); Platelet Count 163 10^3/uL (130-400); Red Blood Cell Count 5.36 10^6/uL (4.70-6.10); Red Cell Dist. Width 14.9 % (11.5-14.5); Urine Albumin Negative (Neg - Trace); Urine Bilirubin Negative (Negative); Urine Character Clear (Clear); Urine Color Yellow; Urine Glucose Negative (Negative); Urine Ketone Negative (Negative); Urine Leukocyte Negative (Negative); Urine Nitrite Negative (Negative); Urine Occult Blood Negative (Negative); Urine Urobilinogen Negative (Neg - 1+); White Blood Cell Count 6.4 10^3/uL (4.8-10.8)
[2024-10-16 11:57] LABS: ALT (SGPT) 26 U/L (0-50); AST (SGOT) 33 U/L (17-59); Albumin 4.7 g/dl (3.5-5.0); Alkaline Phosphatase 62 U/L (38-126); Blood Urea Nitrogen 18 mg/dl (9-20); Calcium 9.5 mg/dl (8.4-10.2); Carbon Dioxide 22 mmol/L (22-30); Chloride 109 mmol/L (98-107); Glucose 97 mg/dl (70-99); HDL Cholesterol 40 mg/dl; LDL Cholesterol, Calculated 60 mg/dl; Potassium 4.7 mmol/L (3.5-5.1); Sodium 143 mmol/L (135-145); Total Cholesterol 125 mg/dl (50-199); Triglyceride 129 mg/dl (10-149); Very Low Density Lipoprotein 25 mg/dl (0-30); eGFR > 60.00
[2024-10-16 12:00] LABS: Vitamin D, 25-OH*** 25.9 ng/mL (30-80)
== END ==
LOC: OLABPV 10:42
PROVIDERS: ATTENDING PHYSICIAN Internal Medicine Geriatric Medicine
DX: Z00.00 Encounter for general adult medical examination without abnormal findings (principal); E78.2 Mixed hyperlipidemia; I10 Essential (primary) hypertension; E55.9 Vitamin D deficiency, unspecified
CPT/HCPCS: 36415; 80053; 80061; 81003; 82306; 85025

== ENCOUNTER → 2025-01-03 15:39 | Outpatient (REF) | payer MEDICARE, OTHER, SELFPAY | LOC: RAD 15:39 | PROVIDERS: ATTENDING PHYSICIAN Nurse Practitioner Family; FAMILY PHYSICIAN Internal Medicine Geriatric Medicine | DX: M25.511 Pain in right shoulder (principal); W19.XXXA Unspecified fall, initial encounter; M79.645 Pain in left finger(s) | CPT/HCPCS: 73030; 73130 ==

== ENCOUNTER → 2025-02-03 08:59 | Outpatient (REF) | payer MEDICARE, OTHER, SELFPAY | LOC: PAVMRI 08:59 | PROVIDERS: ATTENDING PHYSICIAN Nurse Practitioner Family; FAMILY PHYSICIAN Internal Medicine Geriatric Medicine | DX: M25.511 Pain in right shoulder (principal) | CPT/HCPCS: 73221 ==

== ENCOUNTER 2025-05-16 08:34 | Emergency (ER) | payer MEDICARE, OTHER, SELFPAY ==
[2025-05-16 08:36] VITALS: BP 178/78
[2025-05-16 09:56] VITALS: BP 129/83
[2025-05-16 10:00] VITALS: BP 129/67
--- NOTE | 2025-05-16 10:09 | ED.GENMED ---
History of Present Illness
General
Chief Complaint: Headache
Source: patient
Exam Limitations: none
Time Seen by Provider: 05/16/25 09:39
History of Present Illness
History of Present Illness:
85-year-old complaining of episodes of very sharp left-sided headache. Left frontal and left temporal. Sharp pains will last seconds but recur frequently. Has been going on for about 16 hours. No visual issues no nausea or vomiting. No neck
pain. No chest pain shortness of breath or other complaints. No history of same.
Past History
Past History
ED Past Medical History: Arrthythmia, CAD, HTN, Hypercholesterolemia and VT
ED Past Surgical History: Tonsilectomy and Other (herniorrhaphy, MOHS surgery, tooth extraction)
Social History
Tobacco: Non-smoker
Alcohol: Occasional
Drug: None
Personal:
Living: with family
Employment: Retired
Family History
Family History: Other (reviewed and non-contributory)
Review of Systems
Review of Systems
All Other Systems: Not applicable
Respiratory: Reports no symptoms
Cardiac: Reports no symptoms
Neurological: Denies dizzy, weakness or numbness
Phy Exam
Physical Exam
Physical Exam:
GENERAL: Alert and oriented in no apparent distress. When he initially touched his left forehead he jumped with pain. When these occur they seem to last milliseconds are very sharp in nature and resolve quickly.
EYE: Orbits normal.
NECK: Supple, no carotid bruit
ENT: Pharynx without erythema. No rash. No temporal tenderness. No erythema or warmth.
CARDIAC: Irregular irregular no murmur
LUNGS: Clear breath sounds,normal
ABDOMEN: Soft, without focal tenderness or distention
NEUROLOGICAL: Alert and oriented , cranial nerves II through XII intact. Speech normal. [id number] normal no drift.
SKIN: Warm and dry, no rash or lesion, no discoloration, skin intact.
MUSCULOSKELETAL: No edema,no deformity.Good color
PSYCH: Normal and appropriate interaction.
Course
Orders/Labs/Results
Orders:
Orders
05/16/25 08:40
Electrocardiogram (*1) Urgent
Reason for Study: Hypertension, Benign
EKG- Treatment ONCE
05/16/25 09:50
Cardiac Monitoring- Treatment ONCE
IV Insert/Care/Rem.- Treatment PRN
0.9% Sodium Chloride 500 ml [Nss] 500 ml IV BOLUS
Pulse Ox/cont/shift [RESP] Stat
Quantity: 1
05/16/25 09:51
CT Head W/o Iv Contrast Urgent
Comment:
Reason For Exam: Left frontal/temporal headache
CT Neck Angio W/wo Iv Contrast Urgent
Comment:
Reason For Exam: Left frontal/temporal headache
05/16/25 10:00
Basic Metabolic Panel Urgent
Complete Blood Count/With Diff Urgent
Erythrocyte Sed Rate Urgent
Abnormal Lab Results
05/16/25
10:00
Hct 53.2 H %
(39.0-52.0)
MCHC 32.0 L g/dL
(33.0-37.0)
RDW 14.6 H %
(11.5-14.5)
Absolute Lymphs (auto) 1.0 L 10^3/uL
(1.2-3.4)
Lymphocytes % 15.2 L %
(20.5-51.1)
05/16/25 10:00
05/16/25 10:00
Vital Signs
Initial and Last Documented VS:
Initial Vital Signs
Temp Pulse Resp BP Pulse Ox
98.0 F 62 16 178/78 98
05/16/25 08:36 05/16/25 08:36 05/16/25 08:36 05/16/25 08:36 05/16/25 08:36
Last Documented Vital Signs
Temp Pulse Resp BP Pulse Ox
98.0 F 62 16 178/78 98
05/16/25 08:36 05/16/25 08:36 05/16/25 08:36 05/16/25 08:36 05/16/25 10:12
MDM/Problems Addressed
Differential Diagnosis Includes:
Patient describing very nervelike sharp episodes of left temporal left frontal pain. Differential would include intracranial bleed. Unlikely. Is on Eliquis however. Will get CT scan. Carotid dissection. Also unlikely but will rule out with CT
angio of the neck. Shingles. At this time no rash. Although the pain can precede the rash. Trigeminal neuralgia. Relatively high in the differential. Temporal arteritis unlikely. Atypical type pain for this but will check ESR
*Radiology
Radiology exam reviewed: radiology read reviewed (No acute findings)
*Pulse Oximetry
SaO2: 98
Oxygen Mode of Delivery: Room air
Patient hypoxic: no
*EKG
Interpreted by ED Provider?: Yes
Interpretation: abnormal
Comparison EKG: no changes
Heart Rate: 62
Rate: normal
Rhythm: a-fib
Bearden: left axis deviation
Interval: normal interval
QRS Pattern: right bundle branch block
Ischemia: non-specific ST changes
*Offal Roller Interpretation
Rate: normal
Interpretation: abnormal
Heart Rate: 64
Rhythm: a-fib
*Critical Care Note
Total Time (30-74mins, 75-104mins- exclusive of procedures): Not Applicable
Data Reviewed
Review of Other/Old Records Reveals: Labs, Records, Radiology Studies and Testing
Update Note
Update Note:
Patient medically stable and nontoxic. Observed him to have these sharp very brief episodes would be consistent with trigeminal neuralgia. No other serious etiology found. Stable for discharge to follow-up
ED Attending Note
-
Portions of this chart may have been created with voice recognition software.� Occasional wrong word or��sound alike� substitutions may have occurred due to the inherent limitations of voice recognition software.
Discharge Plan
Departure
Patient Disposition: Home (Routine Discharge)
Date of Disposition: 05/16/25
Time of Disposition: 12:35
Patient with high blood pressure during this ER visit?: Yes
Discharge Problem:
Left-sided headache/facial pain, Suspect trigeminal neuralgia
Instructions: Trigeminal neuralgia, Headache, Adult (DC), BLOOD PRESSURE
Prescriptions:
New
gabapentin 100 mg capsule
100 mg PO BID Qty: 20 0RF
No Action
PreserVision AREDS 1 CAP capsule
1 cap PO BID
acetaminophen [Tylenol Extra Strength] 500 MG tablet
1,000 mg PO Q6HPRN PRN (Reason: mild pain/ fever)
nitroglycerin 0.4 MG tablet, sublingual
0.4 mg sublingual [id number] PRN (Reason: chest pain) Qty: 25 10RF
Patient Comments:
has never taken it
metoprolol succinate 12.5 MG tablet extended release 24 hr
12.5 mg PO DAILY Qty: 90 10RF
Eliquis 5 MG tablet
5 mg PO BID
Systane Ultra (PF) 0.4-0.3 % Drops
1 drp BOTH EYES DAILY
Rx Instructions:
both eyes
rosuvastatin 20 mg Tablet
20 mg PO DAILY
aspirin 81 mg Tablet,Chewable
81 mg PO DAILY 18 Days Qty: 18 0RF
Rx Instructions:
Last day 04/06/24 then stop
amlodipine 5 mg Tablet
5 mg PO DAILY 30 Days Qty: 30 0RF
Referrals:
Timothy Zavala MD [Family Provider, Internal Medicine] - Follow up in 2-3 days
Activity Restrictions/Additional Instructions:
You can try the gabapentin. It may make you drowsy
Follow-up closely with your primary physician.
Look for a rash in the area of your pain. If the rash develops this is likely shingles
Interventions
Interventions:
*Risk Screen - Suicide Last Done: 05/16/25 08:36
*General Assessment Last Done: 05/16/25 10:14
*Neglect/Abuse Screening Last Done: 05/16/25 08:36
*ED- Fall Risk Assessment Last Done: 05/16/25 10:14
*ED COVID-19 Vaccine History Last Done: 05/16/25 10:14
*ED Influenza Vaccine History Last Done: 05/16/25 10:14
ED- Neurological Assessment Last Done: 05/16/25 10:16
Discharge Date and Time
Print Language: ALGERIAN
[2025-05-16] MEDS: NSS 500 IV (10:13)
[2025-05-16 10:30] LABS: Blood Urea Nitrogen 15 mg/dl (9-20); Calcium 9.8 mg/dl (8.4-10.2); Carbon Dioxide 29 mmol/L (22-30); Chloride 107 mmol/L (98-107); Glucose 75 mg/dl (70-99); Sodium 142 mmol/L (135-145); eGFR > 60.00
[2025-05-16 11:36] VITALS: BP 130/89
[2025-05-16 11:55] LABS: Hematocrit 53.2 % (39.0-52.0); Hemoglobin 17.0 g/dL (13.0-18.0); Mean Corp Hgb Conc. 32.0 g/dL (33.0-37.0); Mean Corpuscular Volume 89.7 fL (80.0-94.0); Nucleated Red Blood Cells % 0 % (-); Platelet Count 211 10^3/uL (130-400); Red Cell Dist. Width 14.6 % (11.5-14.5)
[2025-05-16 12:00] VITALS: BP 109/84
== END 2025-05-16 12:35 | disposition home or self-care (01) ==
LOC: EMR 08:34
PROVIDERS: EMERGENCY PHYSICIAN Emergency Medicine; FAMILY PHYSICIAN Internal Medicine Geriatric Medicine
DX: R51.9 Headache, unspecified (principal); I45.10 Unspecified right bundle-branch block; I25.10 Atherosclerotic heart disease of native coronary artery without angina pectoris; I10 Essential (primary) hypertension; E78.00 Pure hypercholesterolemia, unspecified; I25.2 Old myocardial infarction; Z79.01 Long term (current) use of anticoagulants; Z86.73 Personal history of transient ischemic attack (TIA), and cerebral infarction without residual deficits
CPT/HCPCS: 99284; 96360; 70450; 70498; 80048; 85025; 85652; 93005; Q9967